=== PATIENT | male | born 1960 | race Caucasian/White ===

== ENCOUNTER 2018-05-06 17:39 | Inpatient (IN) | payer MEDICAID ==
[~2018-05-06] VITALS: Ht 177.8 cm; Wt 88.0 kg
--- NOTE | 2018-05-06 17:56 | NUR ---
PT BIB 878 FROM A BUS STOP TO ER BED 7. PT IS C/O BILAT FOOT PAIN, SWELLING FOR THE PAST 3 MONTHS, STS WAS SEEN AT 3 DIFFERENT HOSPITAL FOR SAME REASON BUT ONLY GETS DISCHARGE. 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 DENIES CHEST PAIN. AFEBRILE. AWAITING MD TAN.
--- NOTE | 2018-05-06 18:00 | NUR ---
FOSTER PA AT BEDSIDE FOR EVAL.
--- NOTE | 2018-05-06 18:13 | NUR ---
IV LINE STARTED BLOOD DRAWN AND SENT TO LAB.
[2018-05-06] MEDS ORDERED: VANCOMYCIN 1 GM in IV D5W 250 ML IV ONE (18:30)
[2018-05-06] MEDS ORDERED: ONDANSETRON HCL/PF 4 MG/2 ML VIAL IV ONE (18:30)
[2018-05-06] MEDS ORDERED: PIPERACILLIN /TAZOBACTAM 3.375 G in IV D5W 50 ML IV ONE (18:30)
[2018-05-06] MEDS ORDERED: IV NS 0.9% 1,000 ML BAG IV ONE (18:30)
[2018-05-06] MEDS ORDERED: MORPHINE SULFATE INJ 2 MG/ML DISP.SYRIN IV ONE (18:30)
[2018-05-06] MEDS ORDERED: MORPHINE SULFATE INJ 2 MG/ML DISP.SYRIN ONE (18:34)
[2018-05-06] MEDS ORDERED: MORPHINE SULFATE INJ 4 MG/ML DISP.SYRIN ONE (18:34)
[2018-05-06] MEDS ORDERED: ONDANSETRON HCL/PF 4 MG/2 ML VIAL ONE (18:34)
[2018-05-06 18:36] LABS: BASOPHILS # (AUTO) 0.1 /CMM (0.0-0.2); EOSINOPHILS % (AUTO) 0.6 % (0.0-6.0); HEMATOCRIT 40 % (39-51); HEMOGLOBIN 13.9 g/dL (13.5-17.5); LYMPHOCYTES # (AUTO) 0.5 /CMM (0.8-4.8); MEAN CORPUSCULAR HGB CONC 35 g/dl (31.0-36.0); MEAN CORPUSCULAR VOLUME 93 fL (80-96); MONOCYTES # (AUTO) 0.8 /CMM (0.1-1.30); MONOCYTES % (AUTO) 8.5 % (2.0-12.0); NEUTROPHILS # (AUTO) 7.8 /CMM (1.8-8.9); NEUTROPHILS % (AUTO) 84.9 % (43.0-81.0); PLATELET COUNT (AUTO) 348 /CMM (150-450); RDW COEFFICIENT OF VARIATION 15.2 (11.5-15.0); RED BLOOD CELL COUNT(AUTO) 4.29 MIL/uL (4.5-6.0); WHITE BLOOD COUNT (AUTO) 9.3 K/uL (4.3-11.0)
[2018-05-06 18:42] LABS: CALCIUM, SERUM 8.5 mg/dL (8.5-10.1); CARBON DIOXIDE 25 mmol/L (21-32); CHLORIDE 101 mmol/L (98-107); CREATININE 0.9 mg/dL (0.6-1.3); GLUCOSE 118 mg/dL (74-106); POTASSIUM 4.6 mmol/L (3.5-5.1); SODIUM SERUM 139 mmol/L (136-145); UREA NITROGEN, BLOOD 10 mg/dL (7-18)
[2018-05-06 18:47] LABS: ALANINE AMINOTRANSFERASE 41 U/L (12-78); BILIRUBIN,DIRECT 0.2 mg/dL (0.0-0.2); BILIRUBIN,TOTAL 0.5 mg/dL (0.2-1.0); INR 1.06 (0.85-1.15); TOTAL PROTEIN, SERUM 7.4 g/dL (6.4-8.2)
[2018-05-06 18:49] LABS: TROPONIN I < 0.017 ng/mL (0.00-0.056)
[2018-05-06 19:04] LABS: ALKALINE PHOSPHATASE 174 U/L (46-116)
[2018-05-06 19:05] LABS: ASPARTATE AMINOTRANSFERASE 107 U/L (15-37)
--- NOTE | 2018-05-06 19:15 | NUR ---
GORE STITCHER AT BEDSIDE
--- NOTE | 2018-05-06 19:20 | NUR ---
REPORT TO ARTEM ALMEIDA FOR BENITO.
--- NOTE | 2018-05-06 19:30 | NUR ---
CALLED [facility] FOR PANEL CALL AND DR MARISOL ROMAN WAS PAGED
--- NOTE | 2018-05-06 19:32 | NUR ---
CARE TAKE OVER FROM NEO. WILL CONTINUE TO MONITOR FOR ANY CHANGES DURING THE SHIFT.
[2018-05-06] MEDS ORDERED: IV NS 0.9% 1,000 ML IV PRN (19:42)
--- NOTE | 2018-05-06 19:48 | NUR ---
CALLED NURSING MENTAL TELEPATHIST AND REQUESTED A HIMANSHU BED
[2018-05-06 20:00] VITALS: BP 108/55
[2018-05-06] MEDS ORDERED: MAG HYDROX/AL HYDROX/SIMETH 30 ML UDC PO PRN (20:00)
[2018-05-06] MEDS ORDERED: MAGNESIUM HYDROXIDE 30 ML UDC PO PRN (20:00)
[2018-05-06] MEDS ORDERED: ACETAMINOPHEN 325 MG TABLET PO PRN (20:00)
[2018-05-06] MEDS ORDERED: Z GUARD REMEDY 2 OZ OINT TP PRN (20:00)
[2018-05-06] MEDS ORDERED: ONDANSETRON HCL/PF 4 MG/2 ML VIAL IVP PRN (20:00)
[2018-05-06] MEDS ORDERED: ZOLPIDEM TARTRATE 5 MG TABLET PO PRN (20:00)
--- NOTE | 2018-05-06 20:01 | NUR ---
URINE SENT TO LAB
--- NOTE | 2018-05-06 20:03 | NUR ---
ECHOCARDIGRAM AT BEDSIDE
--- NOTE | 2018-05-06 20:05 | NUR ---
PT IS ASSIGNED TO [facility]#: [id number], DX: SEPTIC SHOCK , AND ACCEPTING MD: DR DAMON
--- NOTE | 2018-05-06 20:12 | NUR ---
ATTEMPTED TO CALL FOR REPORT. "WE WILL CALL YOU BACK"
[2018-05-06 20:13] LABS: APPEARANCE,URINE Clear (CLEAR); BILIRUBIN,URINE Negative (NEGATIVE); BLOOD, URINE Negative Ery/uL (NEGATIVE); COLOR,URINE Yellow (YELLOW); KETONES,URINE Trace (NEGATIVE); LEUKOCYTE ESTERASE ,URINE Negative (NEGATIVE); NITRITE, URINE Negative (NEGATIVE); PROTEIN,URINE Negative (NEGATIVE); UGLUCOSE Negative (NEGATIVE); UROBILINOGEN,URINE 0.2 EU/dL (0.2)
[2018-05-06 20:31] LABS: RBC,URINE 0-2 /HPF (0-2); WBC,URINE 0-2 /HPF (0-3)
[2018-05-06 20:32] LABS: BACTERIA,URINE Few /HPF (None Seen); SQUAMOUS EPITHELIAL CELL,UR Rare /HPF (None Seen)
[2018-05-06 21:45] VITALS: BP 158/69
--- NOTE | 2018-05-06 23:28 | NUR ---
RN MARISOL AT BEDSIDE, AWARE OF GENERALIZED BODY RASH, OK TO CONTINUE IV ATB ORDERED, AWARE OF VS, HR IN 130'S, STAT EKG ORDERED, NO EKG FROM ER AVAILABLE, WITH NEW ORDER TO START ATIVAN 1MG IVP Q 4HRS PRN . PT DENIES ANY ALLERGIES .
[2018-05-06] MEDS ORDERED: PIPERACILLIN /TAZOBACTAM 3.375 G VIAL IV ONE (23:45)
[2018-05-06] MEDS: LORAZEPAM INJ 2 MG/ML VIAL IV PRN (23:48)
[2018-05-06] MEDS: HYDROCODONE/APAP 10/325MG 1 EA TABLET PO PRN (23:48)
[2018-05-06] MEDS: PIPERACILLIN /TAZOBACTAM 3.375 G in IV D5W 50 ML IV SCH (23:49)
[2018-05-06] MEDS: ENOXAPARIN SODIUM 40 MG/0.4 ML DISP.SYRIN SQ SCH (23:50)
[2018-05-07] VITALS: BP 108/55
[2018-05-07] MEDS ORDERED: IV D5/ 0.9% NACL 1,000 ML IV PRN (01:30)
[2018-05-07] MEDS ORDERED: Folic acid 1 MG/0.2 ML VIAL ONE (01:48)
[2018-05-07] MEDS ORDERED: Thiamine 100 MG/ML VIAL ONE (01:49)
[2018-05-07] MEDS: Thiamine 100 MG in IV D5W 50 ML IV SCH (02:25)
[2018-05-07] MEDS: Folic acid 1 MG in IV D5W 50 ML IV SCH (02:25)
[2018-05-07 04:00] VITALS: BP 134/78
[2018-05-07] MEDS: PIPERACILLIN /TAZOBACTAM 3.375 G in IV D5W 50 ML IV SCH ×4 (05:17→23:39)
[2018-05-07] MEDS: VANCOMYCIN 1 GM in IV D5W 250 ML IV SCH ×3 (05:17→21:32)
[2018-05-07] MEDS: HYDROCODONE/APAP 10/325MG 1 EA TABLET PO PRN ×2 (06:27→11:18)
[2018-05-07] MEDS: LORAZEPAM INJ 2 MG/ML VIAL IV PRN ×2 (06:27→18:11)
[2018-05-07 06:32] LABS: BASOPHILS # (AUTO) 0.1 /CMM (0.0-0.2); BASOPHILS % (AUTO) 0.9 % (0.0-2.0); EOSINOPHILS % (AUTO) 0.8 % (0.0-6.0); HEMATOCRIT 35 % (39-51); HEMOGLOBIN 11.5 g/dL (13.5-17.5); LYMPHOCYTES # (AUTO) 0.6 /CMM (0.8-4.8); LYMPHOCYTES % (AUTO) 6.3 % (20.0-44.0); MEAN CORPUSCULAR HGB CONC 33 g/dl (31.0-36.0); MEAN CORPUSCULAR VOLUME 96 fL (80-96); MONOCYTES # (AUTO) 1.3 /CMM (0.1-1.30); MONOCYTES % (AUTO) 13.8 % (2.0-12.0); NEUTROPHILS # (AUTO) 7.2 /CMM (1.8-8.9); NEUTROPHILS % (AUTO) 78.2 % (43.0-81.0); PLATELET COUNT (AUTO) 256 /CMM (150-450); RDW COEFFICIENT OF VARIATION 16.3 (11.5-15.0); RED BLOOD CELL COUNT(AUTO) 3.61 MIL/uL (4.5-6.0); WHITE BLOOD COUNT (AUTO) 9.2 K/uL (4.3-11.0)
[2018-05-07 06:45] LABS: CALCIUM, SERUM 7.7 mg/dL (8.5-10.1); CREATININE 0.6 mg/dL (0.6-1.3); MAGNESIUM 1.5 mg/dL (1.8-2.4); PHOSPHORUS 2.7 mg/dL (2.5-4.9); POTASSIUM 3.9 mmol/L (3.5-5.1)
[2018-05-07 06:49] LABS: THYROID STIMULATING HORMONE 3.441 uIU/mL (0.358-3.74)
--- NOTE | 2018-05-07 07:15 | NUR ---
HIMANSHU/RN INITIAL NOTES RECEIVED PT IN BED. A/O X4 ON ROOM AIR. NO SOB NOTED. SINUS TACHY ON TELEMONITOR HR 110-120. WITH ONGOING IVF D5NS @ 100ML/HR INFUSING WELL ON RHAND G18. LFA G18 SL INTACT AND PATENT. HOB ELEVATED. SAFETY MEASURES IN PLACED. CALL LIGHT WITHIN REACH. WILL CONT TO MONITOR
[2018-05-07 08:00] VITALS: BP 127/68
--- NOTE | 2018-05-07 08:00 | NUR ---
RN NOTES CAR DEALER REPORTED SPO2 =90%, NO SOB NOTED. PLACED ON 2L O2 VIA NC, PT TOLERATING WELL. SPO2 WENT UP TO 95%
[2018-05-07] MEDS ORDERED: FEE PK DOSING 1 MIN EA MC ONE (09:02)
--- NOTE | 2018-05-07 10:27 | NUR ---
WOUND CARE CONSULT: PT PRESENTS WITH MULTIPLE SKIN ISSUES AND WOUNDS INCLUDING REDNESS TO ABDOMEN AND BILATERAL THIGHS, REDNESS WITH MULTIPLE OPEN AREAS TO LOWER LEGS, RT HEEL DRY WOUND AND RT BACK WOUND, ALL PRESENT ON ADMISSION. RECOMMEND SURGICAL AND DPM CONSULTS. ALL SKIN PROTECTION AND WOUND CARE RECOMMENDATIONS DISCUSSED WITH NURSING STAFF. WILL SEE PRN. [facility]. MD IN AGREEMENT WITH PLAN OF CARE. CURRENT LUIS SCORE IS 14. Addendum: 05/07/18 at 1030 by LISA CASAS WNDNU Amended: Links added.
[2018-05-07] MEDS ORDERED: HYDROGEL DRESSING 90 GM TUBE TP PRN (10:30)
[2018-05-07] MEDS: Magnesium 1GM/D5W 100ML PREMIX 100 ML IV SCH ×2 (10:50→14:01)
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
[2018-05-07] MEDS: HYDROGEL DRESSING 90 GM TUBE TP SCH (11:56)
[2018-05-07 12:00] VITALS: BP 121/74
--- NOTE | 2018-05-07 14:30 | NUR ---
RN NOTES PT C/O ITCHING AFTER VANCO STARTED. HELD IV ATB. NO SOB NOTED. NO C/O PAIN. NOTIFIED GRAPPLE YARDER OPERATOR ERLIN OSBORN RE: REACTION. PER GRAPPLE YARDER OPERATOR, OK TO CONTINUE VANCO, JUST RUN IT FOR 2HRS.
[2018-05-07 16:00] VITALS: BP 141/82
[2018-05-07] MEDS: CLOTRIMAZOLE 1% 15 GM TUBE TP SCH (17:15)
[2018-05-07] MEDS: LACTOBACILLUS RHAMNOSUS GG 1 EACH CAP.SPRINK PO SCH (17:15)
--- NOTE | 2018-05-07 19:34 | NUR ---
RN NBOTES PT IN STABLE CONDITION. NO ACUTE CHANGES NOTED THROUGHOUT SHIFT. ALL NEEDS ANTICIPATED. ENDORSED TO PM SHIFT RN FOR BENITO
[2018-05-07 20:00] VITALS: BP 142/90
--- NOTE | 2018-05-07 20:00 | NUR ---
HIMANSHU/RN NOTES: RECEIVED PT. IN BED W/ HOB ELEVATED AT ALL TIMES. ON TELE MONITOR W/ ST W/ 122. W/ D5NS @ 100 ML/HR VIA RIGHT HAND W/ PATENT AND INTACT W/ NO S/S OF INFECTION/INFILTRATION NOTED. W/ LFA G 18 PATENT AND INTACT W/ NO S/S OF INFECTION/INFILTRATION NOTED. W/ DRESSING INTACT TO BILATERAL LOWER EXTREMITIES. CONTINENT OF B/B. ABLE TO USE URINAL. CALL LIGHT W/ REACH. WILL CONTINUE TO MONITOR.
[2018-05-07] MEDS: ENOXAPARIN SODIUM 40 MG/0.4 ML DISP.SYRIN SQ SCH (21:33)
[2018-05-08] VITALS: BP 145/87
[2018-05-08] MEDS: Folic acid 1 MG in IV D5W 50 ML IV SCH (00:43)
[2018-05-08] MEDS: Thiamine 100 MG in IV D5W 50 ML IV SCH (01:14)
[2018-05-08] MEDS: HYDROCODONE/APAP 5/325MG 1 EACH TABLET PO PRN (03:03)
[2018-05-08] MEDS: LORAZEPAM INJ 2 MG/ML VIAL IV PRN ×3 (03:03→20:35)
[2018-05-08 04:00] VITALS: BP 138/84
[2018-05-08] MEDS: VANCOMYCIN 1 GM in IV D5W 250 ML IV SCH (04:58)
[2018-05-08] MEDS: PIPERACILLIN /TAZOBACTAM 3.375 G in IV D5W 50 ML IV SCH ×3 (05:49→17:23)
[2018-05-08 06:19] LABS: BASOPHILS # (AUTO) 0.1 /CMM (0.0-0.2); BASOPHILS % (AUTO) 0.7 % (0.0-2.0); EOSINOPHILS % (AUTO) 3.5 % (0.0-6.0); HEMATOCRIT 36 % (39-51); HEMOGLOBIN 11.7 g/dL (13.5-17.5); LYMPHOCYTES # (AUTO) 0.9 /CMM (0.8-4.8); LYMPHOCYTES % (AUTO) 7.1 % (20.0-44.0); MEAN CORPUSCULAR HGB CONC 33 g/dl (31.0-36.0); MEAN CORPUSCULAR VOLUME 97 fL (80-96); MONOCYTES # (AUTO) 1.2 /CMM (0.1-1.30); MONOCYTES % (AUTO) 9.7 % (2.0-12.0); NEUTROPHILS # (AUTO) 9.5 /CMM (1.8-8.9); PLATELET COUNT (AUTO) 231 /CMM (150-450); RDW COEFFICIENT OF VARIATION 16.4 (11.5-15.0); RED BLOOD CELL COUNT(AUTO) 3.69 MIL/uL (4.5-6.0)
[2018-05-08 06:32] LABS: ALBUMIN 2.1 g/dL (3.4-5.0); CALCIUM, SERUM 7.9 mg/dL (8.5-10.1); CREATININE 0.7 mg/dL (0.6-1.3); MAGNESIUM 1.8 mg/dL (1.8-2.4); PHOSPHORUS 1.8 mg/dL (2.5-4.9); TOTAL PROTEIN, SERUM 5.8 g/dL (6.4-8.2)
--- NOTE | 2018-05-08 07:50 | NUR ---
HIMANSHU/RN NOTES: REPORT GIVEN TO AM NURSE FOR BENITO.
[2018-05-08 08:00] VITALS: BP 143/96
[2018-05-08] MEDS: LACTOBACILLUS RHAMNOSUS GG 1 EACH CAP.SPRINK PO SCH ×2 (09:04→17:23)
[2018-05-08] MEDS: HYDROCODONE/APAP 10/325MG 1 EA TABLET PO PRN (09:05)
[2018-05-08] MEDS: HYDROGEL DRESSING 90 GM TUBE TP SCH (10:29)
[2018-05-08] MEDS: CLOTRIMAZOLE 1% 15 GM TUBE TP SCH ×2 (10:30→17:23)
[2018-05-08] MEDS ORDERED: K PHOS NEUTRAL 250 MG TABLET PO ONE (11:30)
[2018-05-08 12:00] VITALS: BP 134/91
[2018-05-08] MEDS: POTASSIUM CHLORIDE 20 MEQ TAB.PRT.SR PO SCH ×3 (12:03→14:51)
[2018-05-08] MEDS: IV NS 0.9% 1,000 ML IV SCH (12:22)
[2018-05-08 13:21] LABS: BASOPHILS % (AUTO) 0.2 % (0.0-2.0); EOSINOPHILS % (AUTO) 1.2 % (0.0-6.0); HEMATOCRIT 37 % (39-51); HEMOGLOBIN 11.9 g/dL (13.5-17.5); LYMPHOCYTES # (AUTO) 0.8 /CMM (0.8-4.8); LYMPHOCYTES % (AUTO) 6.2 % (20.0-44.0); MEAN CORPUSCULAR HGB CONC 32 g/dl (31.0-36.0); MEAN CORPUSCULAR VOLUME 97 fL (80-96); MONOCYTES # (AUTO) 1.1 /CMM (0.1-1.30); MONOCYTES % (AUTO) 8.9 % (2.0-12.0); NEUTROPHILS # (AUTO) 10.3 /CMM (1.8-8.9); NEUTROPHILS % (AUTO) 83.5 % (43.0-81.0); PLATELET COUNT (AUTO) 189 /CMM (150-450); RDW COEFFICIENT OF VARIATION 16.2 (11.5-15.0); RED BLOOD CELL COUNT(AUTO) 3.84 MIL/uL (4.5-6.0); WHITE BLOOD COUNT (AUTO) 12.3 K/uL (4.3-11.0)
[2018-05-08] MEDS: VANCOMYCIN 1.25 GM in IV D5W 500 ML IV SCH ×2 (13:24→20:52)
[2018-05-08 13:36] LABS: ALBUMIN 2.3 g/dL (3.4-5.0); BILIRUBIN,TOTAL 1.1 mg/dL (0.2-1.0); CALCIUM, SERUM 8.2 mg/dL (8.5-10.1); CREATININE 0.9 mg/dL (0.6-1.3); POTASSIUM 3.4 mmol/L (3.5-5.1); TOTAL PROTEIN, SERUM 6.2 g/dL (6.4-8.2)
[2018-05-08 16:00] VITALS: BP 147/95
[2018-05-08 20:00] VITALS: BP 154/109
[2018-05-08] MEDS: ENOXAPARIN SODIUM 40 MG/0.4 ML DISP.SYRIN SQ SCH (20:52)
[2018-05-08] MEDS: MORPHINE SULFATE INJ 4 MG/ML DISP.SYRIN IV PRN (21:35)
[2018-05-09] VITALS (22 sets, daily range): BP systolic 112–158; BP diastolic 73–96
[2018-05-09] MEDS: LORAZEPAM INJ 2 MG/ML VIAL IV PRN ×5 (01:01→17:17)
[2018-05-09] MEDS: PIPERACILLIN /TAZOBACTAM 3.375 G in IV D5W 50 ML IV SCH ×4 (01:03→17:17)
[2018-05-09] MEDS: Folic acid 1 MG in IV D5W 50 ML IV SCH (01:26)
[2018-05-09] MEDS: Thiamine 100 MG in IV D5W 50 ML IV SCH (01:27)
[2018-05-09] MEDS: IV NS 0.9% 1,000 ML IV SCH ×3 (02:12→18:00)
[2018-05-09] MEDS: MORPHINE SULFATE INJ 4 MG/ML DISP.SYRIN IV PRN ×2 (03:58→11:28)
[2018-05-09] MEDS: VANCOMYCIN 1.25 GM in IV D5W 500 ML IV SCH ×3 (04:00→22:00)
--- NOTE | 2018-05-09 06:45 | NUR ---
CONCIERGE RECEPTIONIST NOTES AWAKE & RESPONSIVE. STILL CONFUSED AT TIMES. NOT IN ANY DISTRESS. NO SOB NOTED. DENIES ANY PAIN OR DISCOMFORT AT THIS TIME. ON TELE ST @ 115 WITH IVF INFUSING WELL. AM CARE DONE. MONITORED ACCORDINGLY. CALL LIGHT WITHIN REACH. BED IN LOWEST POSITION. SR UP X 3 FOR SAFETY. WILL ENDORSE TO NEXT SHIFT.
--- NOTE | 2018-05-09 07:20 | NUR ---
HEARING THERAPY DIRECTOR OPENING NOTES: RECEIVED PT. IN BED W/ HOB ELEVATED . ON TELE MONITOR W/ ST W/ 112. IV LFA WITH NS @ 100 ML/HR PATENT AND INTACT W/ NO S/S OF INFECTION/INFILTRATION NOTED.RESTLESS.NO SOB NO DISTRESS NOTED.DENIED PAIN.AXOX4 WITH PERIODS OF CONFUSION.TALKING TO HIMSELF.BUE SOFT RESTRAINS ON .ABDOMEN DISTENDED.SRX3,CALL LIGHT IN REACH.BED IS LOW AND IN LOCKED POSITION.WILL CONTINUE TO MONITOR.
[2018-05-09 07:48] LABS: ALBUMIN 2.5 g/dL (3.4-5.0); BILIRUBIN,TOTAL 1.2 mg/dL (0.2-1.0); CALCIUM, SERUM 8.5 mg/dL (8.5-10.1); CREATININE 1.4 mg/dL (0.6-1.3); MAGNESIUM 1.8 mg/dL (1.8-2.4); PHOSPHORUS 2.8 mg/dL (2.5-4.9); TOTAL PROTEIN, SERUM 6.6 g/dL (6.4-8.2)
[2018-05-09] MEDS: HYDROGEL DRESSING 90 GM TUBE TP SCH (08:26)
[2018-05-09] MEDS: CLOTRIMAZOLE 1% 15 GM TUBE TP SCH ×2 (08:26→17:17)
[2018-05-09] MEDS: LACTOBACILLUS RHAMNOSUS GG 1 EACH CAP.SPRINK PO SCH ×2 (08:27→17:17)
[2018-05-09 10:09] LABS: BASOPHILS # (AUTO) 0.2 /CMM (0.0-0.2); HEMATOCRIT 38 % (39-51); HEMOGLOBIN 12.5 g/dL (13.5-17.5); LYMPHOCYTES # (AUTO) 0.7 /CMM (0.8-4.8); MEAN CORPUSCULAR HGB CONC 33 g/dl (31.0-36.0); MEAN CORPUSCULAR VOLUME 97 fL (80-96); MONOCYTES # (AUTO) 1.9 /CMM (0.1-1.30); NEUTROPHILS # (AUTO) 11.1 /CMM (1.8-8.9); PLATELET COUNT (AUTO) 236 /CMM (150-450); RDW COEFFICIENT OF VARIATION 16.1 (11.5-15.0); RED BLOOD CELL COUNT(AUTO) 3.96 MIL/uL (4.5-6.0); WHITE BLOOD COUNT (AUTO) 13.8 K/uL (4.3-11.0)
[2018-05-09 10:12] LABS: BASOPHILS % (AUTO) 1.3 % (0.0-2.0); EOSINOPHILS % (AUTO) 0.3 % (0.0-6.0); LYMPHOCYTES % (AUTO) 4.8 % (20.0-44.0); MONOCYTES % (AUTO) 13.7 % (2.0-12.0); NEUTROPHILS % (AUTO) 79.9 % (43.0-81.0)
--- NOTE | 2018-05-09 10:30 | NUR ---
SALMON TROLL FISHER NOTES PATIENT IS AGITATED PRN ATIVAN GIVEN, WITH TREMORS,DIAPHORETIC ,AXOX4 BUT TALKING TO HIMSELF WITH PERIODS OF CONFUSION.VITAL SIGNS STABLE.O2 SAT 96%HR 112.WHEEZING PRESENT.NO SOB NO DISTRESS NOTED. AWARE.GOT NEW ORDER FOR STAT C XRAY AND BREATHING TREATMENT .WILL CONTINUE TO MONITOR.
--- NOTE | 2018-05-09 11:00 | NUR ---
WHITE WASHER PILER NOTES SEEN BY KEN HINTON UPDATED ABOUT PATIENT CONDITION WITH LABS.WILL LET KNOW ABOUT PATIENT CONDITION.
[2018-05-09] MEDS: ALBUTEROL FS 2.5 MG/0.5 ML VIAL.NEB NEB SCH ×4 (11:24→23:12)
[2018-05-09] MEDS ORDERED: LORAZEPAM INJ 2 MG/ML VIAL IV ONE (12:00)
--- NOTE | 2018-05-09 12:15 | NUR ---
DERMATOLOGY NURSE NOTES SEEN BY UPDATED ABOUT PATIENT CONDITION.DIAPHORETIC WITH TREMORS,DENIED CHEST PAIN.GOT ORDER FOR STAT EKG AND LORAZEPAM 2MGX1 AND TRANSFER TO ICU.CARRIED OUT ORDERS.CALL MADE TO ICU NURSE,REPORT GIVEN TO ALEC.MADE AWARE DRESSING CHANGE DONE AND ABOUT PATIENT CONDITION.WILL TRANSFER PATIENT TO ICU.
--- NOTE | 2018-05-09 12:30 | NUR ---
FRONT MAKER NOTES PATIENT TRANSFERRED TO ICU WITH ACLS PROTOCOL.ALL BELONGINGS AND MEDICATION HANDED OVER TO THE NURSE MICHAEL.
--- NOTE | 2018-05-09 12:40 | NUR ---
received pt from Tele, s/p alcohol withdrawal, tremors present, pt alert, follows commands, confused at times, SR, ST, on 4 L 02 sat well, Ativan 2mg ivp given in Tele, BLLE cellulites and wounds, 2 iv lines started, restraints on, v/s stable, no pain, pt turned and repositioned.
[2018-05-09 13:24] LABS: TROPONIN I 0.152 ng/mL (0.00-0.056)
--- NOTE | 2018-05-09 16:40 | NUR ---
pt is resting in the bed, SR, alert, follows commands, occasional tremors present, ativan ivp 2mg given, v/s stable, no pain, pt cleaned, changed and repositioned q2hrs.
--- NOTE | 2018-05-09 16:47 | NUR ---
PT ASLEEP AND IN NO RESP DISTRESS NOTED. WILL CONT TO MONITOR Addendum: 05/09/18 at 1648 by RKYSTIAN ANDRADE RT Amended: Links added.
--- NOTE | 2018-05-09 20:39 | NUR ---
commercial horticulture instructor. initial assessment. received the pt rest on the bed. LETHARGIC, PT IS SLEEPING. OXYGEN 4L VIA NASAL CANNULA. SAT 98%. NO ACUTE DISTRESS NOTED. STUDENT LIFE VICE PRESIDENT SHOWING NSR, IV RT AND LT HAND 18G. IVF NS 100ML/H, HOB ELEVATED. AFEBRILE.TAWNYA SOFT WRIST RESTRAINT CHECKED AND RELEASED. NO INJURY OR REDNESS NOTED. WILL CONTINUE TO MONITOR VITALS.
[2018-05-09] MEDS: MEROPENEM 500 MG in IV NS 0.9% 50 ML IV SCH (21:11)
[2018-05-09] MEDS: ENOXAPARIN SODIUM 40 MG/0.4 ML DISP.SYRIN SQ SCH (21:12)
--- NOTE | 2018-05-09 22:18 | NUR ---
SECURITIES BROKER. 2199 VANCOMYCIN NOT GIVEN. VANCO LEVEL IS 34. I CALLED NIGHT PHARMACY. MADE AWARE, SHE SAID JUST HOLD TONIGHT AND TOMORROW WILL DO VANCOMYCIN LEVEL.
--- NOTE | 2018-05-09 22:25 | NUR ---
MORTGAGE MANAGER. DRAW FRAME TENDER MARLENE ROGERS MADE AWARE VANCOMYCIN LEVEL. NEW ORDER OK TO PLACE SANDS .
[2018-05-10] VITALS (38 sets, daily range): BP systolic 113–162; BP diastolic 62–109
--- NOTE | 2018-05-10 00:34 | NUR ---
SEED CONE PICKER. FC 16FG INSERTED WITH OUT DIFFICULT, CLEAR URINE DRAINING.
--- NOTE | 2018-05-10 01:16 | NUR ---
RN NOTES RECEIVED PATIENT'S TELEPHONE REPORT FROM RN ANGIOGRAPHY NELIA. RECEIVED PATIENT FROM ICU, A/OX4, ON 4L O2 VIA NC WITH SPO2 OF 97%, B/P- 138/85, HR-98, RR-18, T-98.0. PATIENT PLACED ON SUPERVISOR PASTE PLANT WITH SR/ST.PATIENT COMPLAINT OF PAIN 8/10 ON PAIN SCALE. SANDS CATH. IS NOTED INTACT AND DRAINING YELLOW, CLEAR URIN ON GRAVITY.RIGHT WRIST 18G AND LEFT FOREARM G18 IV LINES ARE PATIENT, INTACT. PATIENT HAS TREMORS AND ANXIOUS AND ASKED FOR MEDICATION.ALL SAFETY MEASURES ARE IMPLEMENTED, BED IN LOW, LOCKED POSITION, CALL LIGHT IN REACH. WILL CONT. TO MONITOR. Addendum: 05/11/18 at 0657 by ARPITA RAMOS RN PLEASE DISREGARD THIS NOTES. WRONG TIME DOCUMENTATION.
[2018-05-10] MEDS: LORAZEPAM INJ 2 MG/ML VIAL IV PRN (02:20)
--- NOTE | 2018-05-10 02:48 | NUR ---
STAFFING ASSOCIATE. PT IS AGITATED, ATIVAN GIVEN PER ORDERED.
[2018-05-10] MEDS: ALBUTEROL FS 2.5 MG/0.5 ML VIAL.NEB NEB SCH ×6 (03:31→23:02)
[2018-05-10] MEDS: MEROPENEM 500 MG in IV NS 0.9% 50 ML IV SCH ×2 (04:28→12:46)
[2018-05-10] MEDS: IV NS 0.9% 1,000 ML IV SCH (04:29)
--- NOTE | 2018-05-10 04:39 | NUR ---
SWITCHBOARD INSPECTOR. AM CARE, ORAL CARE, BED BATH GIVEN. LINEN CHANGED. REMAINING SAME OXYGEN TOLERATED WELL. SAT 98%. NO ACUTE DISTRESS NOTED. AUTOMOTIVE REFINISHER SHOWING NSR. IV RT AND LT HAND. IVF NS 100ML/H. HOB ELEVATED. TAWNYA SOFT WRIST RESTRAINT CHECKED AND RELEASED, NO INJURY OR REDNESS NOTED. FC PATENT. URINE DRAINING. WILL CONTINUE TO MONITOR VITALS.
[2018-05-10 05:40] LABS: CALCIUM, SERUM 7.4 mg/dL (8.5-10.1); CREATININE 2.1 mg/dL (0.6-1.3); POTASSIUM 3.3 mmol/L (3.5-5.1)
--- NOTE | 2018-05-10 08:19 | NUR ---
PT REFUSED RESP TX AT THIS TIME. NO S/S OF SOB NOTED. WILL CONT TO MONITOR. SPO2 98% Addendum: 05/10/18 at 0820 by KRYSTIAN ANDRADE RT Amended: Links added.
[2018-05-10] MEDS: FOLIC ACID 1 MG TABLET PO SCH (08:46)
[2018-05-10] MEDS: CLOTRIMAZOLE 1% 15 GM TUBE TP SCH ×2 (08:46→17:20)
[2018-05-10] MEDS: LACTOBACILLUS RHAMNOSUS GG 1 EACH CAP.SPRINK PO SCH ×2 (08:46→17:19)
[2018-05-10] MEDS: THIAMINE HCL 100 MG TABLET PO SCH (08:46)
[2018-05-10] MEDS: HYDROGEL DRESSING 90 GM TUBE TP SCH (08:47)
--- NOTE | 2018-05-10 09:13 | NUR ---
received pt from manufacturing supervisor 2nd shift, alert, follows commands, SR, on 4L 02, lungs partially congested, BLLE edema, tolerates diet, f/c good urine output, v/s stable, no pain, pt turned and repositioned.
[2018-05-10] MEDS: VANCOMYCIN 1.25 GM in IV D5W 500 ML IV SCH (09:20)
[2018-05-10] MEDS ORDERED: POTASSIUM CHLORIDE 10 MEQ TABLET.SA PO ONE (10:00)
--- NOTE | 2018-05-10 12:42 | NUR ---
pt is resting in the bed, alert, follows commands, v/s stable, no pain, pt turned and repositioned q2hrs.
[2018-05-10] MEDS ORDERED: IV D5/0.45 NACL 1,000 ML IV ONE (13:00)
--- NOTE | 2018-05-10 16:23 | NUR ---
pt is resting in the bed, alert, follows commands, v/s stable, no pain, pt cleaned, changed and repositioned q2hrs.
--- NOTE | 2018-05-10 19:38 | NUR ---
PEWTER FINISHER. INITIAL ASSESSMENT RECEIVED THE PT REST ON THE BED. AWAKE, ALERT, FOLLOW COMMANDS. MOVEMENT THERAPIST SHOWING NSR. IV RT HAND 18G. IVF D5NS 50 ML/H, OXYGEN 4L VIA NASAL CANNULA. SAT 98%, NO ACUTE DISTRESS NOTED. FC PATENT. WILL CONTINUE TO MONITOR VITALS.
[2018-05-10] MEDS: LEVOFLOXACIN (250MG) 250 MG TABLET PO SCH (20:53)
[2018-05-10] MEDS: SILVER SULFADIAZINE CREAM 25 GM TUBE TP SCH (20:53)
[2018-05-10] MEDS: CEFAZOLIN 1 GM in IV D5W 50 ML IV SCH (20:54)
[2018-05-10] MEDS: ENOXAPARIN SODIUM 40 MG/0.4 ML DISP.SYRIN SQ SCH (20:54)
--- NOTE | 2018-05-10 23:44 | NUR ---
HORSE RACE STARTER. REPORT GIVEN TO BOILERMAKER MECHANICJUAN PABLO PALM . TRANSFER THE PT TO ROOM 105. PT IS STABLE.
[2018-05-11] VITALS: BP 138/85
--- NOTE | 2018-05-11 | NUR ---
RN NOTES RECEIVED PATIENT'S TELEPHONE REPORT FROM TYPE COPY EXAMINER NELIA. RECEIVED PATIENT FROM ICU, A/OX4, ON 4L O2 VIA NC WITH SPO2 OF 97%, B/P- 138/85, HR-98, RR-18, T-98.0. PATIENT PLACED ON [place] STICKER WITH SR/ST.PATIENT COMPLAINT OF PAIN 8/10 ON PAIN SCALE. SANDS CATH. IS NOTED INTACT AND DRAINING YELLOW, CLEAR URIN ON GRAVITY.RIGHT WRIST 18G AND LEFT FOREARM G18 IV LINES ARE PATIENT, INTACT. PATIENT HAS TREMORS AND ANXIOUS AND ASKED FOR MEDICATION.ALL SAFETY MEASURES ARE IMPLEMENTED, BED IN LOW, LOCKED POSITION, CALL LIGHT IN REACH. WILL CONT. TO MONITOR.
[2018-05-11] MEDS: HYDROCODONE/APAP 10/325MG 1 EA TABLET PO PRN ×3 (00:11→23:39)
[2018-05-11] MEDS: LORAZEPAM INJ 2 MG/ML VIAL IV PRN (00:42)
[2018-05-11] MEDS: ALBUTEROL FS 2.5 MG/0.5 ML VIAL.NEB NEB SCH ×6 (03:28→23:49)
[2018-05-11 04:00] VITALS: BP 134/87
--- NOTE | 2018-05-11 06:58 | NUR ---
RN CLOSING NOTES PATIENT IS A/OX4,STABLE, ON 4L O2 VIA NC WITH SPO2 OF >96% PATIENT SR ON LIGHT ARMORED VEHICLE OFFICER.NO COMPLAINT OF PAIN AT THIS TIME. SANDS CATH. IS INTACT AND DRAINING YELLOW, CLEAR URIN ON GRAVITY.RIGHT WRIST 18G AND LEFT FOREARM G18 IV LINES ARE PATIENT, INTACT. WOUND CARE PROVIDED ORDERED, PATIENT TURNED AND REPOSITIONED Q2HR, ALL SAFETY MEASURES ARE IMPLEMENTED, BED IN LOW, LOCKED POSITION, CALL LIGHT IN REACH. WILL GIVE PATIENT CARE REPORT TO AM SHIFT FOR FORMULA ROOM WORKER.
--- NOTE | 2018-05-11 07:10 | NUR ---
TELE/RN INITIAL NOTES RECEIVED PT IN BED, A/OX4. NO C/O PAIN AT THIS TIME. ON 4L O2 VIA NC TOLERATING WELL, NO SOB NOTED. SR ON TELEMONITOR. RWRIST G18 AND LFA G18 SL INTACT AND PATENT. F/C INTACT AND IN PLACED, DRAINING CLEAR YELLOW URINE. SAFETY MEASURES IN PLACED. CALL LIGHT WITHIN REACH. WILL CONT TO MONITOR
[2018-05-11 07:11] LABS: BASOPHILS # (AUTO) 0.1 /CMM (0.0-0.2); BASOPHILS % (AUTO) 1.3 % (0.0-2.0); EOSINOPHILS % (AUTO) 8.4 % (0.0-6.0); HEMATOCRIT 36 % (39-51); HEMOGLOBIN 11.9 g/dL (13.5-17.5); LYMPHOCYTES # (AUTO) 0.9 /CMM (0.8-4.8); LYMPHOCYTES % (AUTO) 9.9 % (20.0-44.0); MEAN CORPUSCULAR HGB CONC 33 g/dl (31.0-36.0); MEAN CORPUSCULAR VOLUME 97 fL (80-96); MONOCYTES # (AUTO) 1.5 /CMM (0.1-1.30); MONOCYTES % (AUTO) 16.3 % (2.0-12.0); NEUTROPHILS # (AUTO) 5.8 /CMM (1.8-8.9); NEUTROPHILS % (AUTO) 64.1 % (43.0-81.0); PLATELET COUNT (AUTO) 215 /CMM (150-450); RED BLOOD CELL COUNT(AUTO) 3.69 MIL/uL (4.5-6.0); WHITE BLOOD COUNT (AUTO) 9.1 K/uL (4.3-11.0)
[2018-05-11 07:25] LABS: CALCIUM, SERUM 7.3 mg/dL (8.5-10.1); CREATININE 2.1 mg/dL (0.6-1.3); MAGNESIUM 1.9 mg/dL (1.8-2.4); PHOSPHORUS 4.2 mg/dL (2.5-4.9); POTASSIUM 3.4 mmol/L (3.5-5.1)
[2018-05-11 08:00] VITALS: BP 147/96
[2018-05-11 08:39] LABS: EOSINOPHILS % (MANUAL) 5 % (0-4); LYMPHOCYTES % (MANUAL) 9 % (16-48); MONOCYTES % (MANUAL) 16 % (0-11.0); NEUTROPHILS % (MANUAL) 70 (42-76)
[2018-05-11] MEDS: FOLIC ACID 1 MG TABLET PO SCH (09:10)
[2018-05-11] MEDS: THIAMINE HCL 100 MG TABLET PO SCH (09:10)
[2018-05-11] MEDS: CEFAZOLIN 1 GM in IV D5W 50 ML IV SCH ×2 (09:10→21:47)
[2018-05-11] MEDS: LACTOBACILLUS RHAMNOSUS GG 1 EACH CAP.SPRINK PO SCH ×2 (09:10→16:06)
[2018-05-11] MEDS: HYDROGEL DRESSING 90 GM TUBE TP SCH (09:11)
[2018-05-11] MEDS: CLOTRIMAZOLE 1% 15 GM TUBE TP SCH ×2 (09:12→16:08)
[2018-05-11] MEDS: SILVER SULFADIAZINE CREAM 25 GM TUBE TP SCH ×2 (09:12→16:08)
[2018-05-11] MEDS ORDERED: VANCOMYCIN 1.25 GM in IV D5W 500 ML IV SCH (10:00)
[2018-05-11] MEDS ORDERED: POTASSIUM CHLORIDE 10 MEQ TABLET.SA PO ONE (11:30)
[2018-05-11 12:00] VITALS: BP 137/87
[2018-05-11 16:00] VITALS: BP 144/86
[2018-05-11] MEDS: ASPIRIN EC 81 MG TABLET.DR PO SCH (16:06)
--- NOTE | 2018-05-11 19:35 | NUR ---
RN NOTES PT IN STABLE CONDITION. NO ACUTE CHANGES NOTED THROUGHOUT SHIFT. SAFETY MEASURES OBSERVED AT ALL TIMES. ALL NEEDS ANTICIPATED. ENDORSED TO PM SHIFT RN FOR BENITO
[2018-05-11] MEDS: LEVOFLOXACIN (250MG) 250 MG TABLET PO SCH (19:38)
[2018-05-11] MEDS: HYDROCODONE/APAP 5/325MG 1 EACH TABLET PO PRN (19:44)
[2018-05-11 20:00] VITALS: BP 142/93
--- NOTE | 2018-05-11 20:00 | NUR ---
RN NOTES PATIENT IS ALERT AND ORIENTED X4, NO SOB, CALM, NO DISTRESS, COMPLAINING OF PAIN TO BLE EXTREMITIES DUE TO CELLULITIS, ON BEDREST, STRICT I&0, SANDS CATHETER DRAINING WELL, BLE WOUND DRESSING ARE DRY AND CLEAN, CALL LIGHT WITHIN REACH.
[2018-05-11] MEDS: ENOXAPARIN SODIUM 40 MG/0.4 ML DISP.SYRIN SQ SCH (21:48)
[2018-05-12] VITALS: BP 138/95
[2018-05-12 00:15] VITALS: BP 138/95
[2018-05-12 04:00] VITALS: BP 139/90
[2018-05-12 06:22] VITALS: BP 139/90
--- NOTE | 2018-05-12 06:37 | NUR ---
RN NOTES PATIENT IS ASLEEP, NO DISTRESS, GIVEN NORCO 10/325, REPORTED GOOD RELIEF, SANDS CATHETER DRAINING WELL, OUTPUT 1750, DRINKING ADEQUATE FLUIDS. DRESSING TO BLE ARE DRY AND INTACT, HEELS OFFLOADED. NO ADVERSE CHANGE OF CONDITION DURING SHIFT.
[2018-05-12 06:39] LABS: BASOPHILS # (AUTO) 0.1 /CMM (0.0-0.2); BASOPHILS % (AUTO) 1.1 % (0.0-2.0); EOSINOPHILS % (AUTO) 8.8 % (0.0-6.0); HEMATOCRIT 37 % (39-51); HEMOGLOBIN 12.3 g/dL (13.5-17.5); LYMPHOCYTES # (AUTO) 0.9 /CMM (0.8-4.8); LYMPHOCYTES % (AUTO) 8.3 % (20.0-44.0); MEAN CORPUSCULAR HGB CONC 33 g/dl (31.0-36.0); MEAN CORPUSCULAR VOLUME 98 fL (80-96); MONOCYTES # (AUTO) 1.6 /CMM (0.1-1.30); MONOCYTES % (AUTO) 15.1 % (2.0-12.0); NEUTROPHILS % (AUTO) 66.7 % (43.0-81.0); PLATELET COUNT (AUTO) 242 /CMM (150-450); WHITE BLOOD COUNT (AUTO) 10.5 K/uL (4.3-11.0)
[2018-05-12 06:51] LABS: CALCIUM, SERUM 7.3 mg/dL (8.5-10.1); CREATININE 2.2 mg/dL (0.6-1.3); MAGNESIUM 1.8 mg/dL (1.8-2.4); PHOSPHORUS 3.5 mg/dL (2.5-4.9); POTASSIUM 3.5 mmol/L (3.5-5.1)
--- NOTE | 2018-05-12 07:30 | NUR ---
DRIP BOX TENDER OPENING NOTES RECEIVED PATIENT IN STABLE CONDITION. IN NO APPARENT DISTRESS. BEDSIDE RAILS ARE UPX2. BED IS LOCKED AND LOWERED. CALL LIGHT IS WITHIN REACH. IV LINE IS INTACT AND PATENT. WILL CONTINUE TO MONITOR PATIENT.
[2018-05-12] MEDS: ALBUTEROL FS 2.5 MG/0.5 ML VIAL.NEB NEB SCH ×2 (07:33→11:15)
[2018-05-12 08:00] VITALS: BP 158/101
[2018-05-12] MEDS: CEFAZOLIN 1 GM in IV D5W 50 ML IV SCH (08:14)
[2018-05-12] MEDS: THIAMINE HCL 100 MG TABLET PO SCH (08:18)
[2018-05-12] MEDS: LACTOBACILLUS RHAMNOSUS GG 1 EACH CAP.SPRINK PO SCH (08:18)
[2018-05-12] MEDS: FOLIC ACID 1 MG TABLET PO SCH (08:18)
[2018-05-12] MEDS: SILVER SULFADIAZINE CREAM 25 GM TUBE TP SCH (08:19)
[2018-05-12] MEDS: CLOTRIMAZOLE 1% 15 GM TUBE TP SCH (08:19)
[2018-05-12] MEDS: HYDROGEL DRESSING 90 GM TUBE TP SCH (08:19)
[2018-05-12] MEDS: HYDROCODONE/APAP 10/325MG 1 EA TABLET PO PRN (08:21)
[2018-05-12] MEDS: ASPIRIN EC 81 MG TABLET.DR PO SCH (08:23)
[2018-05-12] MEDS ORDERED: ASPI-1152 PO (11:34)
[2018-05-12] MEDS ORDERED: THIA100T13 PO (11:34)
[2018-05-12] MEDS ORDERED: ACET325T53 PO (11:34)
[2018-05-12] MEDS ORDERED: Levofloxacin (250MG) PO (11:34)
[2018-05-12] MEDS ORDERED: Silver Sulfadiazine Cream TP (11:34)
[2018-05-12] MEDS ORDERED: LACT1CAP72 PO (11:34)
[2018-05-12] MEDS ORDERED: FOLI1TAB16 PO (11:34)
[2018-05-12] MEDS ORDERED: CLOT15CR35 TP (11:34)
[2018-05-12 12:00] VITALS: BP 158/101
[2018-05-12] MEDS: LORAZEPAM INJ 2 MG/ML VIAL IV PRN (13:48)
--- NOTE | 2018-05-12 14:20 | NUR ---
DISCHARGED PATIENT IN STABLE CONDITION. IN NO APPARENT DISTRESS. IV LINE WAS LEFT IN PLACE DUE TO PATIENT RECEIVING IV ANTIBIOTICS AT [facility] AND [facility]. EXITCARE SIGNED AND PROVIDED TO THE PATIENT. SANDS CATHETER REMOVED. ID BAND WAS REMOVED. ALL NEEDS WERE MET. PATIENT BELONGINGS CHECKED AND GIVEN TO THE PATIENT. PATIENT TAKEN TO [facility] BY [facility]ICS.
== END 2018-05-12 14:10 | DRG 720 ==
LOC: ER 17:41 → TELE-TD 20:48 → TELE1 05-08 09:05 → ICU 05-09 12:30 → TELE1 05-10 23:54 → MEDSG1 05-12 10:44
PROVIDERS: ATTEND Nurse Practitioner Acute Care
DX: A41.9 Sepsis, unspecified organism (principal); I21.A1 Myocardial infarction type 2; N17.0 Acute kidney failure with tubular necrosis; F10.231 Alcohol dependence with withdrawal delirium; I50.33 Acute on chronic diastolic (congestive) heart failure; E87.1 Hypo-osmolality and hyponatremia; B35.1 Tinea unguium; E87.2 Acidosis; F17.210 Nicotine dependence, cigarettes, uncomplicated; R65.20 Severe sepsis without septic shock; E83.51 Hypocalcemia; L03.115 Cellulitis of right lower limb; E88.09 Other disorders of plasma-protein metabolism, not elsewhere classified; L03.116 Cellulitis of left lower limb; Z59.0 Homelessness; R60.9 Edema, unspecified; I11.0 Hypertensive heart disease with heart failure; E87.6 Hypokalemia; E83.42 Hypomagnesemia; D53.9 Nutritional anemia, unspecified; E66.9 Obesity, unspecified; Z68.27 Body mass index [BMI] 27.0-27.9, adult; E80.6 Other disorders of bilirubin metabolism; R73.03 Prediabetes; S21.201A Unspecified open wound of right back wall of thorax without penetration into thoracic cavity, initial encounter; X58.XXXA Exposure to other specified factors, initial encounter
CPT/HCPCS: 36415; 71045-TC; 73590-TC; 80048-TC; 80053-TC; 80061-TC; 80076-TC; 80202-TC; 81000-TC; 82962-TC; 83605-TC; 83690-TC; 83735-TC; 83880; 84100-TC; 84443-TC; 84484-TC; 85025-TC; 85730-TC; 87040-TC; 87070-TC; 87081-TC; 87086-TC; 87186-TC; 93307-TC; A4216; A4606; A6248; A6253; A6402; A6403; G0378; J0690; J1650; J2060; J2185; J2270; J2405; J2543; J3370; J3411; J3475; J3490; J7030; J7042; J7060; Z7610